=== PATIENT | male | born 1990 | race Caucasian/White ===

== ENCOUNTER 2016-12-19 20:01 | Emergency (ER) | payer OTHER ==
[~2016-12-19] VITALS: Ht 180.3 cm; Wt 129.4 kg
[~2016-12-19 20:01] MED LIST: ALLERGY10 M1 PO; NAPROSYN500 MG PO; NOHOMEMEDS; TRAMADOL HCL50 MG PO; ZOFRAN ODT4 MG PO
[2016-12-19] MEDS ORDERED: VALACYCLOVIR1000 MG PO (20:31)
[2016-12-19] MEDS ORDERED: PERCOCET 5/31 TABLET PO (20:31)
[2016-12-19 20:36] VITALS: BP 158/66
== END 2016-12-19 20:37 | disposition home or self-care (01) ==
LOC: EME 20:01
DX: B02.9 Zoster without complications (principal)
CPT/HCPCS: 99281; 99284

== ENCOUNTER 2017-03-07 22:08 | Emergency (ER) | payer OTHER ==
[~2017-03-07] VITALS: Ht 180.3 cm; Wt 129.0 kg
[~2017-03-07 22:08] MED LIST changes: +PERCOCET 5/31 TABLET PO; +VALACYCLOVIR1000 MG PO
[2017-03-07 23:29] LABS: HEMATOCRIT 43.1 % (38.0-50.0); MCH 28.2 PG (29.0-34.0); MCHC 33.6 G/DL (30.0-36.0); MCV 83.7 FL (86-99); MEAN PLAT.VOLUME 12.4 uM^3 (9.0-12.4); PLATELET COUNT 160 K/uL (156-360); RBC DIS.WIDTH-CV 12.5 % (11.8-14.6); RBC DIS.WIDTH-SD 37.9 % (39-53); RED BLOOD COUNT 5.15 M/uL (4.00-5.50); WHITE BLOOD COUNT 6.2 K/uL (4.1-10.2)
[2017-03-07 23:40] LABS: CHLORIDE 105 mEq/L (99-109); SODIUM 140 mEq/L (136-147)
[2017-03-07 23:42] LABS: GLUCOSE 148 mg/dL (70-99)
[2017-03-07 23:44] LABS: ANION GAP 9 MEQ/L (2-14); TOTAL BILIRUBIN 0.3 mg/dL (0.0-1.0)
[2017-03-07 23:46] LABS: ALKALINE PHOSPHATASE 94 IU/L (3-129); GFR ESTIMATE (CALCULATED) > 59 mL/min/
[2017-03-07 23:47] LABS: UREA NITROGEN (BUN) 12 mg/dL (9-23)
[2017-03-07 23:49] LABS: LIPASE 32 U/L (1.0-51.0)
[2017-03-08 00:46] LABS: ADD MIUA? YES; BILIRUBIN NEGATIVE; BLOOD NEGATIVE; COLOR YELLOW ((YELLOW)); GLUCOSE (STRIP) NEGATIVE; KETONES NEGATIVE; LEUKOCYTES NEGATIVE; NITRITE NEGATIVE; PROTEIN (STRIP) 100; SPECIFIC GRAVITY 1.026 (1.000-1.030)
[2017-03-08] MEDS ORDERED: ZANTAC150 MG PO (00:59)
[2017-03-08] MEDS ORDERED: ZOFRAN4 MG PO (01:01)
[2017-03-08 01:25] VITALS: BP 157/100
[2017-03-08 01:38] LABS: BACTERIA RARE /HPF; CALCIUM OXALATE CRYSTALS 2+ /HPF; EPITHELIAL CELLS RARE /HPF; MUCUS TRACE /LPF; RED BLOOD CELLS 0-5 /HPF (0-5); UCUL ADDED? NO; WHITE BLOOD CELLS 0-5 /HPF (0-5)
== END 2017-03-08 01:25 | disposition home or self-care (01) ==
LOC: EXP 22:08 → EME 22:08 → EXP 03-08 01:25
PROVIDERS: Physician Assistant
DX: R19.7 Diarrhea, unspecified (principal); R11.2 Nausea with vomiting, unspecified; R55 Syncope and collapse; E78.5 Hyperlipidemia, unspecified; Z90.89 Acquired absence of other organs; Z88.8 Allergy status to other drugs, medicaments and biological substances; Z88.2 Allergy status to sulfonamides
CPT/HCPCS: 80053; 81003; 83690; 85027; 99281; 99284; J2405; J7030

== ENCOUNTER 2017-09-02 08:41 | Emergency (ER) | payer OTHER ==
[~2017-09-02] VITALS: Ht 180.3 cm; Wt 129.6 kg
[~2017-09-02 08:41] MED LIST changes: +ZANTAC150 MG PO; +ZOFRAN4 MG PO
[2017-09-02] MEDS ORDERED: INDOCIN50 MG PO (13:11)
[2017-09-02 13:43] VITALS: BP 150/95
== END 2017-09-02 13:44 | disposition home or self-care (01) ==
LOC: EME 08:41
DX: M25.562 Pain in left knee (principal); R20.0 Anesthesia of skin; M17.12 Unilateral primary osteoarthritis, left knee
CPT/HCPCS: 73564; 99281; 99284